=== PATIENT | female | born 1960 | race Caucasian/White ===

== ENCOUNTER 2016-06-23 16:14 | Emergency (ER) | payer SELFPAY ==
[2016-06-23 16:46] LABS: Hematocrit 37.3 % (37.0-47.0); Hemoglobin 12.4 gm/dL (12.5-16.0); Mean Cell Volume 90.1 fl (78-100); Mean Corpuscular Hgb Conc 33.2 g/dl (32-36); Mean Platelet Volume 9.1 fl (6.0-9.5); Neutrophil # 5.7 K/mm3 (1.3-6.0); Neutrophil % 70.1 % (42-75.0); Platelet Count 303 K/mm3 (150-450); Red Blood Count 4.14 M/mm3 (4.2-5.4); Red Cell Distribution Width 13.8 % (11.5-14.0); White Blood Count 8.1 K/mm3 (4.0-10.5)
[2016-06-23 17:00] LABS: INR 1.06 INR (0.90-1.10)
[2016-06-23 17:05] LABS: ALT 20 U/L (19-67); AST 16 U/L (0-48); Albumin * 3.7 gm/dl (3.4-5.0); Alkaline Phosphatase * 81 U/L (50-170); Anion Gap 12.5 mmol/L (6.8-13.8); BUN/Creatinine Ratio 15.6 (9.0-21.6); Bilirubin, Total 0.4 mg/dL (0.0-1.1); Blood Urea Nitrogen 14 mg/dL (3-23); Calcium * 9.1 mg/dL (7.9-10.9); Carbon Dioxide 26.8 mmol/L (24-32.6); Chloride 105 mmol/L (97-106); Glucose * 117 mg/dL (70-110); Potassium 3.3 mmol/L (3.4-4.6); Sodium 141 mmol/L (132-142); Total Protein 8.2 gm/dL (6.2-8.2); Troponin I Less than 0.017 ng/ml (0.00-0.10)
[2016-06-23] MEDS ORDERED: oxyCODONE HCL/ACETAMINOPHEN 1 TAB TABLET PO ONE (17:21)
--- NOTE | 2016-06-23 17:21 | ERNOTE ---
Medical Problem HPI - Narrative Date of Service: 06/23/16 - General Chief Complaint: Chest Pain Time Seen by Provider: 06/23/16 17:13 Source: patient Exam Limitations: no limitations - Immun/Allergies/Home Medications Immunizations: IMMUNIZATION HX History of Influenza Vaccine No Hx Pneumococcal Vaccination No Allergies/Adverse Reactions: Allergies codeine Allergy (Verified 06/23/16 16:36) erythromycin base Allergy (Verified 06/23/16 16:36) ketorolac tromethamine [From Toradol] Allergy (Verified 06/23/16 16:36) Penicillins Allergy (Verified 06/23/16 16:36) procaine HCl [From Novocain] Allergy (Verified 06/23/16 16:36) Sulfa (Sulfonamide Antibiotics) Allergy (Verified 06/23/16 16:37) Tetracyclines Allergy (Verified 06/23/16 16:36) tramadol Allergy (Verified 06/23/16 16:36) Home Medications: HOME MEDICATIONS Albuterol Sulfate [Proair Hfa] 1 - 2 puff IH Q4H PRN 06/23/16 [Last Taken Unknown] Aspirin 81 mg PO DAILY 06/23/16 [Last Taken Unknown] Ibuprofen [Motrin] 1 tab PO Q8H PRN #60 tab 06/23/16 [Last Taken Unknown] Oxycodone HCl/Acetaminophen [Percocet 5-325 mg Tablet] 1 tab PO Q6H PRN #28 tablet 06/23/16 [Last Taken Unknown] - History of Present History Narrative: Presents with c/o chest wall pain, radiating into her back, onset 4 days ago. Pt described as sharp, and exacerbated by deep breaths and movements. 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 Timing: constant Severity: moderate Review of Systems - Review of Systems Constitutional: Present: no symptoms reported EYE: Present: no symptoms reported ENT: Present: no symptoms reported Respiratory: Present: no symptoms reported Cardiology: Present: chest pain Gastrointestinal/Abdominal: Present: no symptoms reported Genitourinary: Present: no symptoms reported Musculoskeletal: Present: no symptoms reported Skin: Present: no symptoms reported Neurological: Present: no symptoms reported Endocrine: Present: no symptoms reported Hematologic/Lymphatic: Present: no symptoms reported Psych: Present: no symptoms reported All Other Systems: All systems neg except as marked - Patient's Past Medical History Patient History - Cardiac/Respiratory: Asthma Patient History - Cancer: Cervical Patient History - Surgical Procedures: Appendectomy, T & A Patient History - Other: None - Social History Living Situations: home Psych History: No pertinent hx Smoking Status: Current every day smoker Alcohol Use: none Drug Use: none - Immunizations Hx Pneumococcal Vaccination: No History of Influenza Vaccine: No Physical Exam - Physical Exam General Appearance: Present: wd/wn, alert, no apparent distress Ears, Nose, Throat: Present: normal ENT inspection Neck: Present: normal inspection, nontender Respiratory: Present: no respiratory distress, normal breath sounds, lungs clear , chest tenderness Cardiovascular/Chest: Present: regular rate, rhythm, no murmur, chest tenderness - sternum Gastrointestinal/Abdominal: Present: normal bowel sounds, nontender, nondistended, soft, no organomegaly Extremity Exam: Present: normal inspection Neurological Exam: Present: alert, oriented, normal mood/affect Skin Exam: Present: normal color, warm/dry ED Progress - Results and Orders Patient's Lab Results:: I have reviewed the patient's lab results. - Vital Signs Patient's Vital Signs:: I have reviewed the patient's vital signs. Vital Signs: Vital Signs 06/23/16 06/23/16 06/23/16 16:26 16:40 17:06 Temperature 37.5 C Pulse Rate 73 68 67 Respiratory 13 12 12 Rate Blood Pressure 121/51 112/52 112/77 O2 Sat by Pulse 99 97 98 Oximetry - EKG EKG: no ST T wave changes EKG read: Interp. by me - X-Ray X-Ray #1 X-Ray: chest - NAD Interpretation: Interp. by me - NAD - Progress/Reassessment Chief Complaint: General Assessment Departure - Departure Clinical Impression: Costochondral chest pain Disposition: Home self-care Condition: Good Instructions: Costochondritis, [id number] Prescriptions: Ibuprofen [Motrin] 1 tab PO Q8H PRN #60 tab PRN Reason: Pain Oxycodone HCl/Acetaminophen [Percocet 5-325 mg Tablet] 1 tab PO Q6H PRN #28 tablet PRN Reason: Pain
[2016-06-23] MEDS ORDERED: oxyCODONE HCL/ACETAMINOPHEN 1 TAB TABLET ONE (17:23)
--- OUTSIDE RECORDS SUMMARY | 2016-06-23 17:27 | XMS REPORT | Continuity of Care Document ---
:1960 Author Organization [facility] ([facility]) Address [address] [place] [address] Phone [phone] Care Team Providers Name Role Phone Provider, No-Primary Care Primary Care Provider Unavailable Source Comments This disclosure is being made pursuant to the Care Everywhere program, applicable federal and state laws, and may not contain all informaitonavailable regarding this patient.[facility] ([facility]) Active Allergies and Adverse Reactions Allergen Noted Date Severity Reactions Comments Cephalexin 01/25/2015 Rash Ketorolac 01/14/2015 Rash Penicillin 01/14/2015 Anaphylactic Shock Tetracycline 01/14/2015 OTHER Pt. Unable to recall reaction type. Tramadol 01/14/2015 Rash Current Medications Prescription Sig. Disp. Refills Start Date End Date Status ciprofloxacin HCl 0.3 % Instill 1-2 drops 5 mL 0 02/03/2015 Active ophthalmic solution onto the right eye every 2 hours while awake for 2 days, then 1-2 drops every 4 hours while awake for 5 days. Active Problems Not on file Social History Tobacco Use Types Packs/Day Years Used Date Current Every Day Smoker Cigarettes 1 Smokeless Tobacco: Never Used Alcohol Use Drinks/Week oz/Week Comments No Last Filed Vital Signs Vital Sign Reading Time Taken Blood Pressure 157/74 02/03/2015 1:33 PM CDT Pulse 90 02/03/2015 1:33 PM CDT Temperature 36.9 C (98.4 F) 02/03/2015 1:33 PM CDT Respiratory Rate 16 02/03/2015 1:33 PM CDT Height - - Weight - - Body Mass Index - - Oxygen Saturation 98% 02/03/2015 1:33 PM CDT Plan of Care Health Maintenance Due Date Last Done Comments HCV Screening 1960 Hepatitis B Vaccine (1 of 3 - Primary Series) 1960 Tdap Vaccine 1973 Lipid Disorder Screening 1980 MMR Vaccine 1980 Td Vaccine 1980 Pneumococcal Vaccine (1 of 1 - PPSV23) 1981 Cervical Cancer Screening 1992 Mammogram 2002 Colonoscopy 04/21/2012 Influenza Vaccine: Seasonal (#1) 11/11/2015 Results from Last 3 Months Not on file
[2016-06-23 18:18] VITALS: BP 105/65
== END 2016-06-23 18:18 | disposition home or self-care (01) ==
LOC: ER 16:14
DX: R07.1 Chest pain on breathing (principal); F17.210 Nicotine dependence, cigarettes, uncomplicated; Z85.41 Personal history of malignant neoplasm of cervix uteri; J45.909 Unspecified asthma, uncomplicated